=== PATIENT | male | born 1945 | race Caucasian/White ===

== ENCOUNTER 2016-07-03 08:34 | Day surgery (SDC) | payer OTHER ==
[2016-07-03] MEDS ORDERED: SODIUM CHLORID 0.9% 500 ML INJ 500 ML IV SCH (09:15)
[2016-07-03] MEDS ORDERED: LACTATED RINGER'S 1000 ML IV PRN (09:15)
[2016-07-03] MEDS ORDERED: POVIDONE IODINE 5% (ANTISEPSIS KIT) 4 APPLICATIONS EACH NARE PRN (09:15)
[2016-07-03] MEDS ORDERED: CHLORHEXIDINE GLUCONATE 2 % 1 PACK (2 CLOTHS) TOPICAL PRN (09:15)
[2016-07-03] MEDS ORDERED: LORazepam 1 MG TAB SL SCH (09:15)
[2016-07-03] MEDS ORDERED: METOPROLOL TARTRATE 25 MG TAB PO PRN (09:15)
[2016-07-03] MEDS ORDERED: INSULIN HUMAN REGULAR 1,000 UNITS/10 ML VIAL SQ PRN (09:15)
[2016-07-03] MEDS ORDERED: SODIUM CHLORID 0.9% 500 ML IV PRN (09:15)
== END 2016-07-03 12:30 | disposition home or self-care (01) ==
LOC: HDIC 08:34 → HDOC 08:34
PROVIDERS: ATTEND Internal Medicine Interventional Cardiology
DX: I48.2 Chronic atrial fibrillation (principal); Z53.9 Procedure and treatment not carried out, unspecified reason

== ENCOUNTER 2016-07-11 08:28 | Day surgery (SDC) | payer OTHER ==
[~2016-07-11] VITALS: Ht 175.3 cm; Wt 93.5 kg
[2016-07-11] VITALS (9 sets, daily range): BP systolic 140–157; BP diastolic 85–88; PULSE 52–86; RESP 17–19; TEMP 98–98.2; O2SAT 96–97
[~2016-07-11 08:28] MED LIST: HEPARIN-NS/PF INJ 500 ML ONE; MIDAZOLAM HCL 2 MG/2 ML VIAL ONE; fentaNYL CITRATE 250 MCG/5 ML AMP ONE
[2016-07-11] MEDS ORDERED: HEPARIN SODIUM - IV 10,000 UNITS/10 ML VIAL ONE ×2 (08:35→10:43)
[2016-07-11] MEDS ORDERED: PROTAMINE SULFATE 50 MG/5 ML VIAL ONE (08:35)
[2016-07-11] MEDS ORDERED: METOPROLOL TARTRATE 25 MG TAB PO PRN (09:00)
[2016-07-11] MEDS ORDERED: LACTATED RINGER'S 1000 ML IV PRN (09:00)
[2016-07-11] MEDS ORDERED: SODIUM CHLORID 0.9% 500 ML IV PRN (09:00)
[2016-07-11] MEDS ORDERED: POVIDONE IODINE 5% (ANTISEPSIS KIT) 4 APPLICATIONS EACH NARE PRN (09:00)
[2016-07-11] MEDS ORDERED: CHLORHEXIDINE GLUCONATE 2 % 1 PACK (2 CLOTHS) TOPICAL PRN (09:00)
[2016-07-11] MEDS ORDERED: SODIUM CHLORID 0.9% 500 ML INJ 500 ML IV SCH (09:00)
[2016-07-11] MEDS ORDERED: LORazepam 1 MG TAB SL SCH (09:00)
[2016-07-11] MEDS ORDERED: INSULIN HUMAN REGULAR 1,000 UNITS/10 ML VIAL SQ PRN (09:00)
[2016-07-11] MEDS ORDERED: LYSI1TAB4 PO (09:32)
[2016-07-11] MEDS ORDERED: VIAG100T PO (09:32)
[2016-07-11] MEDS ORDERED: VERA120T3 PO (09:32)
[2016-07-11] MEDS ORDERED: APIX5TAB PO (09:32)
[2016-07-11] MEDS ORDERED: ACYC800T PO (09:32)
[2016-07-11] MEDS ORDERED: MOME0.1O20 TOPICAL (09:32)
[2016-07-11 09:48] LABS: AUTOMATED NEUTROPHIL # 3.4 TH/MM3 (1.8-7.7); BASOPHIL # 0.1 TH/MM3 (0-0.2); EOSINOPHIL # 0.2 TH/MM3 (0-0.4); EOSINOPHIL % 2.8 % (0.0-4.0); HEMATOCRIT 42.2 % (39.0-51.0); HEMO FLAGS DIFF FINAL; LYMPH % 23.5 % (9.0-44.0); LYMPHOCYTE # 1.3 TH/MM3 (1.0-4.8); MEAN CELL VOLUME 92.8 FL (80.0-100.0); MEAN CORPUSCULAR HEMOGLOBIN 32.2 PG (27.0-34.0); MEAN CORPUSCULAR HGB CONC 34.7 % (32.0-36.0); MONO % 9.1 % (0.0-8.0); NEUT % 63.6 % (16.0-70.0); PLATELET COUNT 216 TH/MM3 (150-450); RED BLOOD COUNT 4.55 MIL/MM3 (4.50-5.90); RED CELL DISTRIBUTION WIDTH 13.3 % (11.6-17.2); WHITE BLOOD COUNT 5.4 TH/MM3 (4.0-11.0)
[2016-07-11] MEDS ORDERED: HEPARIN-NS/PF INJ 500 ML ONE (09:50)
[2016-07-11] MEDS ORDERED: LEVOFLOXACIN 500 MG PREMIX INJ 100 ML IV ONE (09:50)
[2016-07-11 09:57] LABS: APTT (PATIENT) 25.6 SEC (24.3-30.1); INTERNATIONAL NORMALIZED RATIO 0.9 RATIO; PROTHROMBIN TIME - PATIENT 10.3 SEC (9.8-11.6)
[2016-07-11 10:14] LABS: BICARBONATE 27.4 MEQ/L (21.0-32.0)
--- NOTE | 2016-07-11 12:19 | PD.CARD ---
Atrial Fibrillation Cryo Study PROCEDURE DATE: Jul 11, 2016 PROCEDURE PERFORMED Electrophysiology study, CS cannulation, 3-D mapping, transeptal approach, right and left heart catheterization, cryoablation and RF ablation of atrial fibrillation, pulmonary vein isolation, posterior ablation, anterior ablation, repeat electrophysiology study on Isuprel infusion, intracardiac echo. Very complex case. INDICATIONS FOR PROCEDURE Mr. Soliman is a 71-year-old male with atrial fibrillation, symptomatic, on multiple medications, on anticoagulation, referred for electrophysiology study and ablation. The risks, the nature and the benefit of the procedure are clearly stated to him. The risks include pneumothorax, cardiac perforation, stroke, need for open heart surgery and even . The patient understood and agreed to proceed. PROCEDURE As written informed consent was obtained prior to esophageal echo, the patient was kept on the table where he was prepped and draped in the usual sterile fashion. Conscious sedation was initiated and throughout the procedure by the anesthesiologist. Once sedation was verified, the right and left inguinal area was anesthetized with 2% Xylocaine. Using modified Seldinger technique, the left femoral vein was cannulated on three occasions and three guidewires were advanced over the wire, one 6, one 7, and one 10-St Lucian Hemaquet were advanced. Then the left femoral artery was done on one occasion, one guidewire was advanced over the wire. A 4-[facility] Lucian Hemaquet was advanced. Then the right femoral vein was cannulated on one occasion and one guidewire was advanced over the wire. An 8-[facility] Lucian Hemaquet was advanced. Then under fluoroscopic guidance through the 6 and 7-St Lucian Hemaquet, two 5- [facility] Lucian Tejinder curved quadripolar electrophysiology catheters were advanced and positioned on the His as well as coronary sinus. The patient was in sinus rhythm. Basic interval was measured. They were all within normal limits. Then through the 10-St Lucian Hemaquet, a Cordis-Herron AcuNav intracardiac echo catheter was advanced and placed at the right atrium. Multiple views were obtained. There was no pericardial effusion. Pulmonary vein was seen. The atrial septum was visualized. Then the 8-St Lucian Hemaquet in the right femoral vein was exchanged for an Agilis transseptal sheath that was placed all the way to the superior vena cava. Through this sheath a [place] needle was advanced. Then the sheath, the dilator and the needle were pulled back progressively until foci engaged. Once the needle was advanced, RF was delivered for 2 seconds. I was able to cross into the left atrium. Once the needle was crossed, the dilator was advanced. Once the dilator was crossed, the sheath was advanced. Once the sheath crossed , the dilator and needle were removed. An intracardiac echo showed the sheath in good position. The patient already received 10,000 units of heparin. The goal is to get an ACT around 360 during the ablation. Through this sheath a Shattered Reality Interactiveive circumferential catheter was advanced. Using GreenBytes endocardial solution mapping system a three-dimensional configuration of the left atrium was obtained. Points were taken at the left superior and inferior vein, right superior and inferior vein, mitral valve, and appendage. Then at this point I decided to proceed with cryoablation. The circumferential catheter was removed. Through the sheath a 0.035 wire was advanced. I did exchange the Agilis sheath for a Shutter Guardian flex sheath. I decided to use a 28mm balloon. The balloon was advanced over the wire. First I did engage the left superior vein. The balloon was inflated, complete occlusion obtained. CryoEnergy was delivered for 3 and 3 minutes. Temperature reached -54. Then I did engage the left inferior vein, occlusion obtained. Venography showed complete occlusion and CryoEnergy was delivered for 3 and 3 minutes. Temperature was around -42 to -48. Then the right inferior was engaged, complete occlusion obtained. Temperature reach -48 for 3 and 3 minutes. Then the right superior was engaged. Before CryoEnergy of the right veins, the His catheter was placed at the left and the right subclavian. Phrenic nerve pacing was performed. There was diaphragmatic stimulation. That is going to be used for phrenic nerve monitoring during cryoablation. I did cryoablate the right superior vein. There was no loss of phrenic nerve movement , diaphragmatic movement. Phrenic nerve was intact. The temperature dropped to -54 for 3 and 3 minutes. At that point I removed the balloon. The circumferential catheter was advanced into the veins. Pacing from the vein showed no conduction to the atrium. Pacing from the atrium showed no conduction to the veins. The patient at this point received Isuprel infusion for around 15 minutes at 20mcg. No tachyarrhythmia was induced, no conduction resumed. Post-Isuprel no conduction resumed either. At that point the procedure was complete. All catheters were removed, the transeptal sheath was exchanged for a 12-St Lucian Hemaquet. Intracardiac echo showed pericardial effusion, still good flow in the pulmonary vein. No incident reported. The patient tolerated the procedure. Blood loss minimal. 1. Electrocardiogram: At baseline the patient was in sinus. Postprocedure the patient in sinus. 2. Basic Interval: Base cycle length was around 1108 milliseconds. AH 58. HV 56 ms. 3. Tachyarrhythmia: Atrial fibrillation was mapped and ablated. Ablation was successful. CONCLUSION Successful electrophysiology study, mapping and radiofrequency ablation of atrial fibrillation, pulmonary vein isolation, posterior and anterior wall ablation, repeat electrophysiology study on Isuprel infusion. COMMENT AND RECOMMENDATIONS The patient is going to be transferred to the telemetry unit, will be observed, and when stable can be discharged home. Sabrina Luciano MD Jul 11, 2016 12:19
[2016-07-11] MEDS ORDERED: SODIUM CHLOR 0.9% 250 ML INJ 250 ML IV PRN (12:30)
[2016-07-11] MEDS ORDERED: oxyCODONE/ACETAMINOPHEN 5 MG/325 MG TAB PO PRN ×2 (12:30)
[2016-07-11] MEDS ORDERED: LORazepam 2 MG/ML VIAL IV PRN (12:30)
[2016-07-11] MEDS ORDERED: ONDANSETRON HCL 4 MG/2 ML VIAL IV PRN (12:30)
[2016-07-11] MEDS ORDERED: ATROPINE SULFATE 1 MG/ML VIAL IV PRN (12:30)
[2016-07-11] MEDS ORDERED: LIDOCAINE HCL 1% 50 ML VIAL INFIL PRN (12:30)
[2016-07-11] MEDS ORDERED: BACITRACIN OINT 0.9 GM PKT TOP ONE (12:30)
[2016-07-11] MEDS ORDERED: METOCLOPRAMIDE HCL 10 MG/2 ML VIAL IV PRN (12:30)
[2016-07-11] MEDS ORDERED: DO NOT ADM ANY ANTICOAGULANT DRUGS PRN (13:00)
[2016-07-11] MEDS: ACYCLOVIR 800 MG TAB PO SCH (17:46)
[2016-07-11] MEDS: APIXABAN 5 MG TABLET PO SCH (20:18)
[2016-07-11] MEDS: VERAPAMIL HCL 120 MG TAB PO SCH (21:29)
[2016-07-12] VITALS (12 sets, daily range): BP systolic 103–144; BP diastolic 51–83; PULSE 61–78; RESP 18; TEMP 98–98.3; O2SAT 96–97
[2016-07-12 05:39] LABS: APTT (PATIENT) 25.2 SEC (24.3-30.1); PROTHROMBIN TIME - PATIENT 11.1 SEC (9.8-11.6)
[2016-07-12] MEDS: VERAPAMIL HCL 120 MG TAB PO SCH (08:20)
[2016-07-12] MEDS: APIXABAN 5 MG TABLET PO SCH (08:20)
[2016-07-12] MEDS: ACYCLOVIR 800 MG TAB PO SCH (08:20)
[2016-07-12] MEDS ORDERED: LYSINE HCL 1000 MG PO SCH (09:00)
--- NOTE | 2016-07-12 09:49 | PD.CARD.PN ---
Subjective Subjective Remarks Pt in NSR, wants to go home Objective Medications Administered Medications Medications (Trade) Dose Ordered Sig/Alexey Route PRN Reason Start Time Stop Time Status Last Admin Dose Admin Acyclovir (Zovirax) 800 mg TID PO 07/11/16 13:00 07/12/16 08:20 Apixaban (Eliquis) 5 mg BID PO 07/11/16 21:00 07/12/16 08:20 Verapamil HCl (Isoptin) 120 mg BID PO 07/11/16 21:00 07/12/16 08:20 Vital Signs / I&O Vital Signs Date Time Temp Pulse Resp B/P Pulse Ox O2 Delivery O2 Flow Rate FiO2 07/12/16 08:22 61 07/12/16 07:38 98.3 65 18 144/83 97 07/12/16 07:38 78 07/12/16 06:07 61 07/12/16 05:06 62 07/12/16 04:01 63 07/12/16 03:57 98.2 62 18 103/51 96 07/12/16 03:00 63 07/12/16 02:02 62 07/12/16 01:00 61 07/12/16 00:00 98.0 73 18 109/52 96 07/12/16 00:00 78 07/11/16 23:00 74 07/11/16 22:00 75 07/11/16 21:00 74 07/11/16 20:00 98.0 81 19 140/88 96 07/11/16 20:00 78 07/11/16 19:00 85 07/11/16 18:25 82 07/11/16 17:02 98.2 86 143/87 96 07/11/16 17:00 85 07/11/16 16:30 84 14 142/77 98 Room Air 07/11/16 16:00 76 12 130/69 99 07/11/16 15:00 64 12 130/65 98 07/11/16 14:45 74 12 128/68 98 07/11/16 14:15 75 12 130/72 100 07/11/16 14:00 78 14 144/87 100 07/11/16 13:45 73 12 135/73 98 07/11/16 13:30 76 12 133/74 99 07/11/16 13:15 74 12 136/72 98 07/11/16 13:00 79 14 127/68 97 07/11/16 12:45 79 12 137/71 100 Nasal Cannula 2 07/11/16 12:34 97.4 87 12 138/77 98 Nasal Cannula 2 I/O 07/11/16 07/11/16 07/11/16 07/12/16 07/12/16 07/12/16 07:00 15:00 23:00 07:00 15:00 23:00 Intake Total 750 ml 740 ml 480 ml Output Total 5 ml 550 ml 1100 ml Balance 745 ml 190 ml -620 ml Intake Oral 240 ml 480 ml IV Total 500 ml Other 750 ml Output Urine Total 550 ml 1100 ml Estimated Blood Loss 5 ml Physical Exam GENERAL: This is a well-nourished, well-developed patient, in no apparent distress. CARDIOVASCULAR: Regular rate and rhythm without murmurs, gallops, or rubs. RESPIRATORY: Clear to auscultation. Breath sounds equal bilaterally. No wheezes , rales, or rhonchi. GASTROINTESTINAL: Abdomen soft, non-tender, nondistended. Normal active bowel sounds MUSCULOSKELETAL: Extremities without clubbing, cyanosis, or edema. NEURO: Alert & Oriented x4 to person, place, time, situation. Moves all ext x4 Laboratory Laboratory Tests Test 07/12/16 04:45 Prothrombin Time 11.1 SEC Prothromb Time International 1.0 RATIO Ratio Activated Partial 25.2 SEC Thromboplast Time Assessment and Plan Problem List: (1) Atrial fibrillation Assessment and Plan: In NSR post ablation, on eliquis; he will f/u with Dr. Luciano in the office, ok to d/c home. Problem Qualifiers (1) Atrial fibrillation: Qualified Code: I48.0 - Paroxysmal atrial fibrillation Rachid De La Cruz MD Jul 12, 2016 09:49
--- NOTE | 2016-07-12 14:44 | EKG ---
Date Performed: 07/11/2016 Time Performed: 09:18:56 PTAGE: 71 years EKG: Left axis deviation Poor R wave progression which may be due to axis deviation Low QRS volt age in precordial leads Sinus bradycardia NO PREVIOUS TRACING for comparison Abnormal ECG NO PREVIOUS TRACING DOCTOR: Umesh Michel Interpretating Date/Time 07/12/2016 14:44:08
--- NOTE | 2016-07-12 14:47 | EKG ---
Date Performed: 07/11/2016 Time Performed: 13:27:30 PTAGE: 71 years EKG: Sinus rhythm MARKED LEFT AXIS DEVIATION ABNORMAL ECG Since PREVIOUS TRACING 07/11/2016, there is an improvement in the R force progression across t he precordium, otherwise no significant change. PREVIOUS TRACING 07/11/2016 DOCTOR: Umesh Michel Interpretating Date/Time 07/12/2016 14:45:44
--- NOTE | 2016-07-12 14:48 | EKG ---
Date Performed: 07/12/2016 Time Performed: 06:53:06 PTAGE: 71 years EKG: Sinus bradycardia Leftward axis Poor R wave progression - probable normal variant Inferior T wave changes are nonspecific Low QRS voltages in precordial leads Borderline ECG Since PREVIOUS TRACING 07/11/2016, QRS voltage smaller in precordial leads, otherwise no signi ficant change. PREVIOUS TRACIN07/11/2016 13.27 DOCTOR: Umesh Michel Interpretating Date/Time 07/12/2016 14:46:50
--- NOTE | 2016-07-14 09:58 | CATHPROC ---
[employer] HIS Report Study Information Study Number Admission Scheduled Start Study Start [id number] 07/11/2016 07/11/2016 Jul 11 2016 8:54AM Referring Institution Admit Source Facility Department 1 Other [facility] - Office Asst Physician and Clinical Staff Initial Sabrina Bonilla Executor Of Estate Rashida Daniels,RT(R) TECH2 Executor Of Estate Mp Chopra,RT(R) Other Anesthesia, BRONZE CHASER Recorder Christen Arrieta,BLANK Scrub Delia Garces,SLEEPING CAR PORTER TECH2 Procedures Performed Procedure Location (Site) Vessel Name Ablation Procedure CRYO Ablation LIPV LIPV CRYO Ablation LSPV LSPV CRYO Ablation RIPV RIPV CRYO Ablation RSPV RSPV ICE CATHETER INSERT RA Atruim Venogram LSPV LSPV Venogram RIPV RIPV Venogram RSPV RSPV Equipment Time Finishing Area Supervisor Description Size Mfg Part Number Used/Scraped NEEDLE, TRANSSEPTAL NRG 98 08:56 [id number] Used C1 [employer]/ EP 08:56 KIT, TRANSDUCER / AFIB [id number] Used PACER COVER, TRANSDUCER CABLE 08:56 Doctolib [id number] Used ACUNAV 08:56 CORDIS/PACER SHEATH, FR10 CLARICE 11CM FR 10 [id number] Used 08:56 CORDIS/PACER SHEATH, FR9 CLARICE 11CM FR 9 [id number] Used [id number] 08:56 MED[employer] PACK, CCL CUSTOM * Used *[id number] 08:56 Turbogen PACER TURNER, LIMB * 2530 *[id number] Used [id number] 08:56 TYSON Security MEDICAL SHEATH, FR4.5 PRELUDE 11CM FR 4.5 Used [id number] 08:56 NAMIC TUBING, HIGH PRESSURE 20" 20" Used *[id number] 08:56 NAMIC TUBING, HIGH PRESSURE 48" 48" Used *[id number] 10:57 NYCOMED OMNIPAQUE, 300 MG, 150ML 150ML [id number] Used [id number] 08:56 LUND MEDICAL BLANKET,WARM AIR CCL * Used *[id number] 08:56 [employer] MEDICAL CATHETER, JSN, QUAD FR 5 Used *[id number] 08:56 [employer] MEDICAL CATHETER, JSN, QUAD FR 5 Used *[id number] 08:56 [employer] MEDICAL ELECTRODE KIT, PADILLA X SURFACE * [id number] Used 08:56 [employer] MEDICAL SET, [place] TUBING 66728 *[id number] Used 08:56 [employer] MEDICAL SHEATH, EPS, FR6 FAST CATH FR 6 [id number] Used 08:56 [employer] MEDICAL SHEATH, EPS, FR7 FAST CATH FR 7 [id number] Used 08:56 [employer] MEDICAL SHEATH, EPS, FR8 FAST CATH FR 8 [id number] Used SHEATH, FR8.5 STEERABLE SM 10:43 [facility] MEDICAL 71CM [id number] Used 71CM BUNDLE CATHETER, ACUNAV FR10 ICE [id number] 10:23 REJI FR 10 Used (REJI) *[id number] [facility] PAD, ELECTROSURGICAL 08:56 * [id number] *[id number] Used SURGICAL GROUNDING (BLUE) BALLOON, ARCTIC FRONT [id number] 10:42 VITATRON MEDTRONIC Used ADVANCE 28MM *[id number] SHEATH, FR12 FLEXCATH 10:41 VITATRON MEDTRONIC FR 12 [id number] Used STEERABLE History: Allergies Allergy Reaction No Known Allergies History: Risk Factors Hypertension Dyslipidemia Yes Yes Labs Hgb (g/dl) Hct (%) RBC (MIL/MM3) WBC (l/cumm) Platelets (thousands) 12.00-18.00 37.00-55.00 4.80-6.20 4.80-10.80 140.00-450.00 14.0 42 4.5 5.4 216 INR (PTT:PT) 0.50-2.00 0.9 Medication Medication Total Dose (Bolus/Oral) Medication Total Dosage/Unit 1% XYLOCAINE 40 mL HEPARIN 67088 units Medications (Bolus/Oral) Medication Time Given Dosage/Unit Administered By Reason 1% XYLOCAINE 07/11/2016 10:16:46 AM 20 mL Sabrina Luciano 20 mL 1% XYLOCAINE given in lab by Sabrina Luciano in Left Groin via Subcutaneous. Ordered by Silvio Luciano. 1% XYLOCAINE 07/11/2016 10:20:38 AM 20 mL Sabrina Luciano 20 mL 1% XYLOCAINE given in lab by Sabrina Luciano in Right Groin via Subcutaneous. Ordered by Samuel Luciano. HEPARIN 07/11/2016 10:28:36 AM 41721 units Anesthesia, BRONZE CHASER 03084 units HEPARIN given in lab by Anesthesia, BRONZE CHASER via Peripheral IV. Ordered by Sabrina Luciano. HEPARIN 07/11/2016 10:44:00 AM 3000 units Anesthesia, BRONZE CHASER As per physicians ve rbal order 3000 units HEPARIN given in lab by Anesthesia, BRONZE CHASER via Peripheral IV. Ordered by Sabrina Luciano. Reas on: As per physicians verbal order. Medication (Drip) Medication Time Given Dosage/Unit Concentration/Unit Diluent (ml) Solution HEPARIN DRIP 07/11/2016 10:44:51 AM 1000 units/hr 30221 units 250 D5W 1000 units/hr HEPARIN DRIP given in lab by Anesthesia, BRONZE CHASER via Peripheral IV. Pump/Drip Flow = 10 ml /hr [place] [address] units in 250 ml. Ordered by Sabrina Luciano. Reason: As per physicians verbal order. ISUPREL 07/11/2016 11:50:33 AM 20 mcg/min 1 mg 250 NaCl .9 20 mcg/min ISUPREL given in lab by Anesthesia, BRONZE CHASER via Peripheral IV. Pump/Drip Flow = 300 ml/hr usi ng NaCl .9 with a concentration of 1 mg in 250 ml. Ordered by Sabrina Luciano. Reason: As per physicians verbal order. LEVAQUIN 07/11/2016 9:45:44 AM 100 mL/hr 500 100 NaCl .9 100 mL/hr LEVAQUIN given in lab by Anesthesia, BRONZE CHASER via Peripheral IV. Pump/Drip Flow = 0 ml/hr using NaCl .9 with a concentration of 500 in 100 ml. Ordered by Sabrina Luciano. Reason: As per physicians verbal order. Initial Case Assessment Cardiovascular HR Rhythm NIBP 53 sb 13/74 Edema Present Skin color Skin None Normal Warm Dry Circulatory - Right Pulses Dorsalis Pedis 2 Scale (0,1,2,3,4,d) Circulatory - Left Pulses Dorsalis Pedis Scale (0,1,2,3,4,d) Circulatory - Lower Extremities Color Lower Right Color Lower Left Normal Normal Neurological State Oriented to time-place- Alert Moves all extremities person Respiration - General Respiration Rate SpO2 (%) (B/min) 20 97 Chronological Log Time Study Chronological Log 9:30:00 Patient arrived via Bed. 9:30:06 Patient Name, D.O.B, / Armband Verified By R.N. 9:30:47 Consent signed by the physician and the patient and verified by the Office Asst staff. 9:31:00 Pre-op and post- op instructions given; patient acknowledges understanding of instructions. 9:31:08 Verbal Stimulation=2 Physical Stimulation=2 Airway=2 Respiration=2 TOTAL=8. (0=absent, 1=li mited, 2=present) 9:31:49 Anesthesia at bedside. Assumes care of patient. 9:31:51 Patient has been NPO for More than 6Hrs. 9:31:52 Skin Breakdown- 9:31:52 Patient Warmer Placed on the Table. 9:31:53 Disposable Defibrillator Pads Placed On Patient. 9:31:54 Praneeth Prominences Protected 9:31:56 A # 20 IV was noted in the Antecubital (left). Grade = 0 0.9ns kvo 9:31:57 A # 20 IV was noted in the Antecubital (right). Grade = 0 0.9ns kvo 9:31:59 History and physical on the chart or being dictated. Assessment: Initial Case, HR=53 BPM, Rhythm=sb, NIBP=13/74 mmhg, Edema=None, Color=Normal, Skin = Warm, Dry Right Pulses: Mychal Ped=2 Left Pulses: Post Tib=2 9:35:00 Lower Right Extremities: Color=Normal Lower Left Extremities: Color=Normal Neurological: State=Alert, Ox3, MURPHY Respiration: Resp=20 B/min, SpO2=97 % 9:45:27 Table restraints applied according to hospital policy 100 mL/hr LEVAQUIN given in lab by Anesthesia, BRONZE CHASER via Peripheral IV. Pump/Drip Flow = 0 ml/hr using NaCl .9 with 9:45:44 a concentration of 500 in 100 ml. Ordered by Sabrina Luciano. Reason: As per physicians verbal or luigi. 9:47:00 Pt intubated 9:48:00 14 fr allen inerte w/o difficulty. Clear yellow urine obtained. 9:55:46 Right groin prepped with 2% chlorhexidine, and with a 3 min. waiting time. 9:59:58 Reference ECG taken 10:07:45 MD arrived. 10:10:00 Pressure channel 1 zeroed. Time Out. Correct patient, procedure, procedure equipment, site and side verified with physicia n present. Time 10:12:00 concurred by MD, individual staff and BRONZE CHASER. Time Out #2 - Consents verified, patient in correct position, all results are labled and displa yed, safety precautions 10:12:14 taken, antibiotics administered. Time out concurred by MD, individual staff and BRONZE CHASER in procedu re 10:12:48 Case Start 10:13:04 STEVEN in progress. 10:15:55 Steven complete. 10:16:46 20 mL 1% XYLOCAINE given in lab by Sabrina Luciano in Left Groin via Subcutaneous. Ordered by Sabrina Luciano. 10:17:44 Vascular access was obtained in the Fem Vein (left). 10:17:47 Vascular access was obtained in the Fem Vein (left). 10:17:47 Vascular access was obtained in the Fem Vein (left). 10:17:48 Vascular access was obtained in the Fem Art (left). A SHEATH, FR4.5 PRELUDE 11CM FR 4.5 was advanced into the Fem Art (left) using the Modified Yesica ammy technique. 10:18:16 0.9ns pressure bag connected. 10:19:33 A SHEATH, EPS, FR6 FAST CATH FR 6 was advanced into the Fem Vein (left) using the Modified Seldinger technique. 10:19:43 A SHEATH, EPS, FR7 FAST CATH FR 7 was advanced into the Fem Vein (left) using the Modified Seldinger technique. 10:19:56 A SHEATH, FR10 CLARICE 11CM FR 10 was advanced into the Fem Vein (left) using the Modified S eldinger technique. 10:20:38 20 mL 1% XYLOCAINE given in lab by Sabrina Luciano in Right Groin via Subcutaneous. Ordered b y Sabrina Luciano. 10:21:47 Vascular access was obtained in the Fem Vein (right). 10:22:00 A SHEATH, EPS, FR8 FAST CATH FR 8 was advanced into the Fem Vein (right) using the Modified Seldinger technique. 10:22:54 CATHETER, ACUNAV FR10 ICE (REJI) FR 10 Was Postioned. A CATHETER, JSN, QUAD FR 5 was advanced vis Fem Vein (left) and placed in the CS. Placement was visually 10:24:16 confirmed under fluoroscopy. A CATHETER, JSN, QUAD FR 5 was advanced vis Fem Vein (left) and placed in the CS. Placement was visually 10:24:25 confirmed under fluoroscopy. A CATHETER, JSN, QUAD FR 5 was advanced vis Fem Vein (left) and placed in the HIS. Placement wa s visually 10:24:36 confirmed under fluoroscopy. A SHEATH, FR8.5 STEERABLE SM 71CM BUNDLE 71CM was exchanged in the Fem Vein (right). This was n ecessary in 10:25:03 order for catheter support. 10:26:26 Daniel in via right fem 10:28:36 81621 units HEPARIN given in lab by Anesthesia, BRONZE CHASER via Peripheral IV. Ordered by Samuel Luciano. 10:31:52 A eps was advanced to the right atrium and passed through the septal wall to the left atriu m. 10:32:04 Daniel out. 10:34:20 Activated Clotting Time Drawn 10:42:00 ACT (Normal Range 90-180) = 296 A SHEATH, FR12 FLEXCATH STEERABLE FR 12 was exchanged in the Fem Vein (right). This was necessa ry in order for 10:43:33 catheter support. 3000 units HEPARIN given in lab by Anesthesia, BRONZE CHASER via Peripheral IV. Ordered by Sabrina Luciano . Reason: As per 10:44:00 physicians verbal order. 1000 units/hr HEPARIN DRIP given in lab by Anesthesia, BRONZE CHASER via Peripheral IV. Pump/Drip Flow = 10 ml/hr using 10:44:51 [place] [address] units in 250 ml. Ordered by Sabrina Luciano. Reason: As per phy sicians verbal order. 10:51:01 Activated Clotting Time Drawn 10:53:05 A BALLOON, ARCTIC FRONT ADVANCE 28MM was inserted over wire via the Fem Vein (right). 10:54:28 Placement verified under fluoroscopy. 10:56:32 The LSPV was manually injected with 20 cc's of contrast. OMNIPAQUE, 300 MG, 150ML 150ML use d. 10:56:40 Cryo Ablation of the LSPV with a BALLOON, ARCTIC FRONT ADVANCE 28MM. 1st 10:58:10 ACT (Normal Range 90-180) = 352 11:01:42 Cryo Ablation of the LSPV with a BALLOON, ARCTIC FRONT ADVANCE 28MM. 2nd 11:13:50 Cryo Ablation of the LIPV with a BALLOON, ARCTIC FRONT ADVANCE 28MM. 1st 11:18:48 Cryo Ablation of the LIPV with a BALLOON, ARCTIC FRONT ADVANCE 28MM. 2nd 11:24:13 Cryo Ablation of the RIPV with a BALLOON, ARCTIC FRONT ADVANCE 28MM. 1st 11:27:42 The RIPV was manually injected with 20 cc's of contrast. OMNIPAQUE, 300 MG, 150ML 150ML use d. 11:28:24 Cryo Ablation of the RIPV with a BALLOON, ARCTIC FRONT ADVANCE 28MM. 2nd 11:34:34 Activated Clotting Time Drawn 11:35:52 The RSPV was manually injected with 20 cc's of contrast. OMNIPAQUE, 300 MG, 150ML 150ML use d. 11:36:09 Cryo Ablation of the RSPV with a BALLOON, ARCTIC FRONT ADVANCE 28MM. 1st 11:39:28 The RSPV was manually injected with 20 cc's of contrast. OMNIPAQUE, 300 MG, 150ML 150ML use d. 11:39:50 Cryo Ablation of the RSPV with a BALLOON, ARCTIC FRONT ADVANCE 28MM. 2nd 11:40:42 ACT (Normal Range 90-180) = 346 20 mcg/min ISUPREL given in lab by Anesthesia, BRONZE CHASER via Peripheral IV. Pump/Drip Flow = 300 ml/ hr using NaCl .9 11:50:33 with a concentration of 1 mg in 250 ml. Ordered by Sabrina Luciano. Reason: As per physicians uziel bal order. 12:04:44 isuprel off 12:05:09 Ablation procedure performed: AFIB. 12:05:14 EP Procedure was performed. 12:05:20 Catheter(s) removed without difficulty 12:05:21 Sheath(s) left in place, will be removed in Holding Area 12:05:24 Case End 12::27 Sterile dressing applied to site 12:05:27 No case complications noted. 12:05:31 Bedside Report will be given. 12:05:36 Patient moved to stretcher 12:05:38 Defibrillator and ground pads removed. Skin intact. End Study - Contrast Media Used In Study Contrast Total Opened (mL) Total Used (mL) Total Wasted (mL) Omnipaque 150 75 75 End Study - Radiation Exposure Fluoro Time (minutes) 16.4 End Study - Patient Disposition Complications Transferred To Interventional Outcome No Telemetry Bed successful
== END 2016-07-12 10:20 | disposition home or self-care (01) ==
LOC: HDOC 08:28 → HDIC 08:30 → HCIN 17:03 → HDOC 07-12 10:20
PROVIDERS: ATTEND Internal Medicine Interventional Cardiology
DX: I48.2 Chronic atrial fibrillation (principal); Z79.01 Long term (current) use of anticoagulants
CPT/HCPCS: 80048; 85002; 85025; 85610; 85730; 86850; 86900; 86901; 93005; 93312; 93320; 93325; 93613; 93623; 93656; 93662; C1730; C1731; C1732; C1733; C1759; C1766; J1644; J1956; J2250; J2720; J3010